=== PATIENT | female | born 1985 | race Caucasian/White ===

== ENCOUNTER 2020-12-09 11:15 | Emergency (ER) | payer OTHER, SELFPAY ==
[2020-12-09 11:45] VITALS: BP 130/80; PULSE 87; RESP 20; TEMP 36.8; O2SAT 98
--- NOTE | 2020-12-09 12:12 | ED.GENADULT ---
HPI - General Adult General Chief complaint: Upper Respiratory Infection Stated complaint: sinus and ear pain Time Seen by Provider: 12/09/20 12:12 Source: patient and RN notes reviewed Mode of arrival: ambulatory Limitations: no limitations and language barrier History of Present Illness HPI narrative: 35-year-old female presents with complaints of upper respiratory infection, otalgia, facial congestion, facial pressure, and intermittent headache (not the worst of her life) for the past 14 days. Lea reports increase in symptoms over the past 72 hours. Tylenol without relief. No facial swelling. Denies cough and chest congestion. Nasal congestion and rhinorrhea. No high fevers, sore throat, drooling, neck or throat swelling. No voice change. No nausea, vomiting, or abdominal pain. Tolerating liquids well. Denies chills, dyspnea, difficulty swallowing, jaw pain, dental pain, foreign body sensation, and rash. No chest pain or shortness of breath. The patient reports she have not been diagnosed with COVID-19. The patient reports she is not waiting for the results of a COVID-19 lab test. The patient reports she do not have chills, weakness, or fatigue. The patient reports she do not have a new or worsening cough or shortness of breath. The patient reports she do not have any loss of taste or smell or diarrhea. Denies recent traveling. Denies concerns for COVID-19 or exposures been home with limited outdoor exposure except for essential household needs, work, and return home. At this time, patient is not suspected of having COVID-19. Some parts of this dictation were generated by voice recognition software and may contain typographical and/or grammatical inaccuracies. Related Data Home Medications Medication Instructions Recorded Confirmed amlodipine 5 mg PO DAILY 12/09/20 12/09/20 cyclosporine modified 100 mg PO BID 12/09/20 12/09/20 losartan 100 mg PO DAILY 12/09/20 12/09/20 prednisone 10 mg PO DAILY 12/09/20 12/09/20 rosuvastatin 5 mg PO DAILY 12/09/20 12/09/20 sertraline 75 mg PO DAILY 12/09/20 12/09/20 Allergies Allergy/AdvReac Type Severity Reaction Status Date / Time cefaclor Allergy Unknown Unknown Verified 12/09/20 19:04 Review of Systems Review of Systems: Narrative: CONSTITUTIONAL: Denies fever, chills, sweats. EYES: Denies visual changes, redness, discharge. ENT: Complains of rhinorrhea, congestion, otalgia, facial congestion and pressure. Denies sore throat. CARDIOVASCULAR: Denies chest pain, palpitations, edema. RESPIRATORY: Denies dyspnea, wheezing, cough. GASTROINTESTINAL: Denies abdominal pain, nausea, vomiting, diarrhea. GENITOURINARY: Denies dysuria, hematuria, abnormal discharge SKIN: Denies rash or itching. MUSCULOSKELETAL: Denies acute back pain, joint pain, or myalgia. NEUROLOGIC: Denies numbness or focal weakness. Complains of intermittent BOOTH. PSYCHIATRIC: Denies anxiety or depression. All other systems reviewed & are unremarkable except as noted in HPI and below. [facility] Past Medical History Medical History (Updated 12/10/20 @ 18:33 by ABBY Manuel) Anxiety Chronic cough Chronic sinusitis (~2018) Follows with ENT Depression Glomerulonephritis Follows with nephrology Surgical History Surgical History (Updated 12/10/20 @ 18:35 by ABBY Manuel) H/O LEEP (~2018) cervical dysplasia History of tonsillectomy History of tympanostomy Hx of sinus surgery Family History Family History Other Cerebrovascular accident Family history of cardiovascular disease Social History Social History (Updated 12/09/20 @ 12:40 by ABBY Manuel) Smoking status: Never smoker Tobacco type: cigarettes Second hand tobacco smoke exposure: No Alcohol intake: current Substance use: never Substance use type: does not use Living arrangements: with family Occupation/Education: occupa
== END 2020-12-09 12:40 | disposition home or self-care (01) ==
PROVIDERS: Emergency Provider Nurse Practitioner Family
DX: J01.10 Acute frontal sinusitis, unspecified (principal); Z20.822 Contact with and (suspected) exposure to COVID-19; F41.9 Anxiety disorder, unspecified; F32.9 Major depressive disorder, single episode, unspecified; N05.9 Unspecified nephritic syndrome with unspecified morphologic changes
CPT/HCPCS: 87426; 87804; 99213; C9803; G0463

== ENCOUNTER 2021-02-10 15:27 | Emergency (ER) | payer OTHER, SELFPAY ==
[2021-02-10 15:35] VITALS: BP 120/71; PULSE 89; RESP 18; TEMP 36.9; O2SAT 98
--- NOTE | 2021-02-10 16:16 | ED.URI ---
HPI - URI/Sore Throat General Chief Complaint: Upper Respiratory Infection Stated Complaint: runny nose sore throat Time Seen by Provider: 02/10/21 16:14 Source: patient and RN notes reviewed Mode of arrival: ambulatory Limitations: no limitations History of Present Illness HPI Narrative: 36-year-old female presents with concern for sore throat, rhinorrhea with clear nasal drainage. Reports symptoms started 2 days ago. Reports her children also have similar symptoms. Denies taking any [id number] intervention. She denies fever, cough, shortness of breath, loss of sense of taste or smell, body aches, chills, sweats, ear pain, headache, nausea, vomiting, diarrhea. MD elicited complaint: sore throat and rhinorrhea Related Data Home Medications Medication Instructions Recorded Confirmed amlodipine 5 mg PO DAILY 12/09/20 02/10/21 cyclosporine modified 100 mg PO BID 12/09/20 02/10/21 losartan 100 mg PO DAILY 12/09/20 02/10/21 prednisone 10 mg PO DAILY 12/09/20 02/10/21 rosuvastatin 5 mg PO DAILY 12/09/20 02/10/21 Allergies Allergy/AdvReac Type Severity Reaction Status Date / Time cefaclor Allergy Unknown Unknown Verified 02/10/21 15:35 Review of Systems Review of Systems: Narrative: CONSTITUTIONAL: Denies malaise, chills, sweats, or fever. EYES: Denies visual changes, redness, or discharge. ENT: Reports rhinorrhea, sore throat. Denies congestion, sinus pain, otalgia CARDIOVASCULAR: Denies chest pain, palpitations, or edema. RESPIRATORY: Denies cough or dyspnea. GASTROINTESTINAL: Denies abdominal pain, nausea, vomiting, diarrhea SKIN: Denies rash or itching. MUSCULOSKELETAL: Denies myalgia. NEUROLOGIC: Denies headache. All systems reviewed & are unremarkable except as noted in HPI and below PMFSH Past Medical History Medical History (Updated 02/10/21 @ 16:23 by Karey Zambrano NP) Anxiety Chronic cough Chronic sinusitis (~2019) Follows with ENT Depression Glomerulonephritis Follows with nephrology Surgical History Surgical History (Updated 12/10/20 @ 18:35 by ABBY Manuel) H/O LEEP (~2018) cervical dysplasia History of tonsillectomy History of tympanostomy Hx of sinus surgery Family History Family History Other Cerebrovascular accident Family history of cardiovascular disease Social History Social History (Updated 12/09/20 @ 12:40 by ABBY Manuel) Smoking status: Never smoker Tobacco type: cigarettes Second hand tobacco smoke exposure: No Alcohol intake: current Substance use: never Substance use type: does not use Gender identity (if verbalized by the patient): Female Comments At time of signature, agree with nursing past medical, surgical, social and family history. There is no relevant family history pertinent to the presenting complaint Exam Narrative: Exam Narrative: GENERAL: Well-appearing, well-nourished, and in no acute distress. HEAD: Normocephalic EYES: PERRLA, conjunctivae clear ENT: Nares clear, turbinates erythematous, clear discharge. Mucous membranes moist. TM pearly hassan with sharp light reflex bilaterally; no tragal tenderness. Postnasal drainage noted. Oropharynx erythematous without lesions. Tonsils not enlarged and without exudate, no drooling, no hoarseness, no trismus, uvula midline. NECK: Supple. No lymphadenopathy CHEST: Clear to auscultation, breath sounds equal. No wheezing, rhonchi, rales, or stridor. No respiratory distress, speaks in full sentences. HEART: Regular rate and rhythm. No murmur heard. SKIN: Warm, dry, no rash. NEURO: Alert and oriented x3. PSYCH: Normal mood and affect Course Course Emergency Course: Patient is aware of diagnosis, understands and agrees to treatment plan. Anticipatory guidance given. Patient agrees to follow-up as directed and is aware of reasons to seek care at the emergency department. Portions of this record may have been crea
== END 2021-02-10 16:25 | disposition home or self-care (01) ==
PROVIDERS: Emergency Provider Nurse Practitioner
DX: J06.9 Acute upper respiratory infection, unspecified (principal); N05.9 Unspecified nephritic syndrome with unspecified morphologic changes
CPT/HCPCS: 87081; 87880; 99213; G0463

== ENCOUNTER 2021-05-08 13:17 | Emergency (ER) | payer OTHER, SELFPAY ==
--- NOTE | 2021-05-08 13:19 | ED.URI ---
HPI - URI/Sore Throat General Chief Complaint: Upper Respiratory Infection Stated Complaint: ear pain dizzy sniffels cough Time Seen by Provider: 05/08/21 13:19 Source: patient and RN notes reviewed History of Present Illness HPI Narrative: Patient is a 36-year-old female who presents the urgent care with complaints of right ear pain, wet cough, rhinorrhea and dizziness. Patient states symptoms started on May 02 with a sore throat which is since resolved. States that the ear pain and pressure has gotten much worse in the last 24 to 48 hours. Patient states that her son and her were both tested for Covid considering they all had the same symptoms. Patient states they were negative and she has been fully vaccinated. Patient denies of any fever, nausea, vomiting, drainage from the ear. Patient has not taken anything for her symptoms. No other acute complaints. No acute distress noted. Patient aware of the plan of care. Some parts of this dictation were generated by voice recognition software and may contain typographical and/or grammatical inaccuracies. Related Data Home Medications Medication Instructions Recorded Confirmed amlodipine 5 mg PO DAILY 12/09/20 05/08/21 cyclosporine modified 100 mg PO BID 12/09/20 05/08/21 losartan 100 mg PO DAILY 12/09/20 05/08/21 rosuvastatin 5 mg PO DAILY 12/09/20 05/08/21 prednisone 10 mg PO DAILY 05/08/21 05/08/21 Allergies Allergy/AdvReac Type Severity Reaction Status Date / Time No Known Allergies Allergy Verified 05/08/21 13:28 Review of Systems Review of Systems: Narrative: CONSTITUTIONAL: Denies fever, chills, or sweats. EYES: Denies visual changes, redness, or discharge. ENT: Reports of rhinorrhea, postnasal drainage and right otalgia CARDIOVASCULAR: Denies chest pain, palpitations, or edema. RESPIRATORY: Reports of slight cough without dyspnea GASTROINTESTINAL: Denies abdominal pain, nausea, vomiting, or diarrhea. GENITOURINARY: Denies dysuria or hematuria. SKIN: Denies rash or itching. MUSCULOSKELETAL: Denies back pain, joint pain, or myalgia. NEUROLOGIC: Denies headache, numbness, or weakness. All other systems reviewed are negative, except as documented in HPI. [facility] Past Medical History Medical History (Updated 05/08/21 @ 13:34 by ABBY oJ) Anxiety Chronic cough Chronic sinusitis (~2019) Follows with ENT Depression Glomerulonephritis Follows with nephrology Surgical History Surgical History (Updated 12/10/20 @ 18:35 by ABBY Manuel) H/O LEEP (~2018) cervical dysplasia History of tonsillectomy History of tympanostomy Hx of sinus surgery Family History Family History Other Cerebrovascular accident Family history of cardiovascular disease Social History Social History (Updated 12/09/20 @ 12:40 by ABBY Manuel) Smoking status: Never smoker Tobacco type: cigarettes Second hand tobacco smoke exposure: No Alcohol intake: current Substance use: never Substance use type: does not use Gender identity (if verbalized by the patient): Female Comments At the time of my signature, I reviewed and agree with the nursing past medical, surgical, social, and family history. There is no relevant family history pertinent to the patient complaint. Exam Narrative: Exam Narrative: GENERAL: This is a well-nourished, well-developed patient, in no apparent distress. HEAD: normocephalic, atraumatic. EYES: PERRL. Sclera clear/white. Vision is grossly intact. EARS: External ears normal, auditory canals clear and without drainage, moderate effusion with moderate erythema and slight injection to the right TM, left TM normal without perforation. Hearing grossly intact. NOSE: External nose normal with no obvious nasal discharge, nares without redness, no rhinorrhea. THROAT: Mucous membranes moist, posterior pharynx clear. Mild postnasal drainage NECK: Neck s
[2021-05-08 13:24] VITALS: BP 122/67; PULSE 88; RESP 18; TEMP 36.7; O2SAT 99
== END 2021-05-08 13:37 | disposition home or self-care (01) ==
PROVIDERS: Emergency Provider Nurse Practitioner Family
DX: H66.91 Otitis media, unspecified, right ear (principal); N05.9 Unspecified nephritic syndrome with unspecified morphologic changes; F41.9 Anxiety disorder, unspecified; F32.9 Major depressive disorder, single episode, unspecified
CPT/HCPCS: 99213; G0463

== ENCOUNTER 2021-07-09 13:06 | Emergency (ER) | payer OTHER, SELFPAY ==
[2021-07-09 13:10] VITALS: BP 128/77; PULSE 92; RESP 18; TEMP 36.9; O2SAT 98
--- NOTE | 2021-07-09 13:15 | ED.URI ---
HPI - URI/Sore Throat General Chief Complaint: Upper Respiratory Infection Stated Complaint: runny nose headache sore throat tired Time Seen by Provider: 07/09/21 13:15 Source: patient and RN notes reviewed History of Present Illness HPI Narrative: Patient is a 36-year-old female who presents the urgent care with complaints of runny nose, headache, fatigue and sore throat. Patient states that her whole family had strep a couple weeks ago. States that her symptoms started on Wednesday and she has not taken anything [id number]. Denies of any fever, chills, nausea, vomiting. Patient has had her Covid vaccine as well as the booster. Denies of any known exposure to Covid or strep. 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 No other acute complaints. No acute distress noted. Patient aware of the plan of care. Some parts of this dictation were generated by voice recognition software and may contain typographical and/or grammatical inaccuracies. Related Data Home Medications Medication Instructions Recorded Confirmed amlodipine 5 mg PO DAILY 12/09/20 05/08/21 cyclosporine modified 100 mg PO BID 12/09/20 05/08/21 losartan 100 mg PO DAILY 12/09/20 05/08/21 rosuvastatin 5 mg PO DAILY 12/09/20 05/08/21 prednisone 10 mg PO DAILY 05/08/21 05/08/21 Allergies Allergy/AdvReac Type Severity Reaction Status Date / Time No Known Allergies Allergy Verified 07/09/21 13:26 Review of Systems Review of Systems: CONSTITUTIONAL: Denies fever, chills, or sweats. Reports of fatigue EYES: Denies visual changes, redness, or discharge. ENT: Reports of sore throat, congestion, rhinorrhea CARDIOVASCULAR: Denies chest pain, palpitations, or edema. RESPIRATORY: Denies cough or dyspnea. GASTROINTESTINAL: Denies abdominal pain, nausea, vomiting, or diarrhea. GENITOURINARY: Denies dysuria or hematuria. SKIN: Denies rash or itching. MUSCULOSKELETAL: Denies back pain, joint pain, or myalgia. NEUROLOGIC: Reports of headache All other systems reviewed are negative, except as documented in HPI. [facility] Past Medical History Medical History (Updated 07/09/21 @ 13:45 by ABBY Jo) Anxiety Chronic cough Chronic sinusitis (~2019) Follows with ENT Depression Glomerulonephritis Follows with nephrology Surgical History Surgical History (Updated 12/10/20 @ 18:35 by ABBY Manuel) H/O LEEP (~2018) cervical dysplasia History of tonsillectomy History of tympanostomy Hx of sinus surgery Family History Family History Other Cerebrovascular accident Family history of cardiovascular disease Social History Social History (Updated 12/09/20 @ 12:40 by ABBY Manuel) Smoking status: Never smoker Tobacco type: cigarettes Second hand tobacco smoke exposure: No Alcohol intake: current Substance use: never Substance use type: does not use Gender identity (if verbalized by the patient): Female Comments At the time of my signature, I reviewed and agree with the nursing past medical, surgical, social, and family history. There is no relevant family history pertinent to the patient complaint. Exam Narrative: GENERAL: This is a well-nourished, well-developed patient, in no apparent distress. HEAD: normocephalic, atraumatic. EYES: PERRL. Sclera clear/white. Vision is grossly intact. EARS: External ears normal, auditory canals clear and without drainage, TMs normal without perforation. Hearing grossly intact. NOSE: External nose normal with no obvious nasal discharge, nares without redness, no rhinorrhea. THROAT: Mucous membranes moist, posterior pharynx clear. Mild postnasal drainage NECK: Neck supple, non-tender without lymphadenopathy, masses or thyromegaly. CARDIOVASCULAR: Regular rate and rhythm without murmurs, gallops, or rubs. RESPIRATORY: Clear to auscultation. Breath sounds equal
== END 2021-07-09 13:45 | disposition home or self-care (01) ==
PROVIDERS: Emergency Provider Nurse Practitioner Family
DX: J32.9 Chronic sinusitis, unspecified (principal); F41.9 Anxiety disorder, unspecified; F32.9 Major depressive disorder, single episode, unspecified
CPT/HCPCS: 87081; 87880; 99213; G0463

== ENCOUNTER 2021-09-04 18:22 | Emergency (ER) | payer OTHER, SELFPAY ==
[2021-09-04 18:32] VITALS: BP 120/83; PULSE 89; RESP 16; TEMP 36.5; O2SAT 100
--- NOTE | 2021-09-04 19:48 | ED.URI ---
HPI - URI/Sore Throat General Chief Complaint: Upper Respiratory Infection Stated Complaint: runny nose sore throat headache Time Seen by Provider: 09/04/21 19:26 Source: patient and RN notes reviewed Mode of arrival: ambulatory Limitations: no limitations History of Present Illness HPI Narrative: Patient presents today complaining of sore throat, rhinorrhea, headache, chills since yesterday. Denies fever. Daughter was diagnosed with strep throat over the last couple of days. Patient has taken no [id number] medication for symptoms prior to arrival. She has been vaccinated against COVID-19. MD elicited complaint: sore throat Related Data Home Medications Medication Instructions Recorded Confirmed amlodipine 10 mg PO DAILY 12/09/20 09/04/21 cyclosporine modified 100 mg PO BID 12/09/20 09/04/21 prednisone 5 mg PO DAILY 05/08/21 09/04/21 rosuvastatin 5 mg tablet 5 mg PO QHS tablet 08/06/21 09/04/21 Allergies Allergy/AdvReac Type Severity Reaction Status Date / Time No Known Allergies Allergy Verified 09/04/21 18:44 Review of Systems Review of Systems: CONSTITUTIONAL: Denies body aches, fever, or sweats.+ Chills EYES: Denies visual changes, redness, or discharge. ENT: Denies congestion, or otalgia.+ Rhinorrhea, sore throat CARDIOVASCULAR: Denies chest pain, palpitations, or edema. RESPIRATORY: Denies cough or dyspnea. GASTROINTESTINAL: Denies abdominal pain, nausea, vomiting, or diarrhea. GENITOURINARY: Denies dysuria or hematuria. SKIN: Denies rash, itching, or wounds. MUSCULOSKELETAL: Denies back pain, joint pain, or myalgia. NEUROLOGIC: Denies numbness, tingling, or weakness.+ Headache PSYCH: Denies depression or anxiety. [facility] Past Medical History Medical History Anxiety Chronic cough Chronic sinusitis (~2019) Follows with ENT CKD (chronic kidney disease) stage 3, GFR 30-59 ml/min Depression Dyslipidemia Environmental allergies Essential (primary) hypertension Family history of colon cancer in father IgA nephropathy Minimal change disease Surgical History Surgical History H/O LEEP (~2018) cervical dysplasia History of tonsillectomy (~2004) History of tympanostomy Hx of sinus surgery (~2018) Family History Family History Other Cerebrovascular accident Family history of cardiovascular disease Social History Social History Smoking status: Never smoker Tobacco type: cigarettes Second hand tobacco smoke exposure: No Alcohol intake: current Substance use: never Substance use type: does not use Gender identity (if verbalized by the patient): Female Comments At time of signature, I have reviewed and agree with nursing past medical, surgical, social and family history unless otherwise noted. Please see nursing chart for further information. There is no relevant family history pertinent to the presenting complaint Exam Narrative: GENERAL: Well-appearing, well-nourished, and in no acute distress. HEAD: Normocephalic, atraumatic. EYES: EOMI. No redness or drainage. Conjunctivae normal. ENT: Mucous membranes pink and moist. Nares clear. No rhinorrhea. TMs normal bilaterally. Throat normal. Uvula midline. NECK: Normal AROM. Supple. No lymphadenopathy. CHEST: No respiratory distress. Clear to auscultation. HEART: Regular rate and rhythm. No murmur appreciated. EXTREMITIES: Normal range of motion. No edema. SKIN: Warm, dry, no rash. Capillary refill normal. Normal skin turgor. NEURO: No focal deficits. Alert and oriented x3. Gait steady. PSYCH: Normal affect. No signs of depression or anxiety. Course Vital Signs Vital signs: Vital Signs Temperature 97.7 F 09/04/21 18:32 Pulse Rate 89 09/04/21 18:32 Respiratory Rat
== END 2021-09-04 19:45 | disposition home or self-care (01) ==
PROVIDERS: Emergency Provider Nurse Practitioner
DX: J06.9 Acute upper respiratory infection, unspecified (principal); I12.9 Hypertensive chronic kidney disease with stage 1 through stage 4 chronic kidney disease, or unspecified chronic kidney disease; N18.30 Chronic kidney disease, stage 3 unspecified; E78.5 Hyperlipidemia, unspecified; F41.9 Anxiety disorder, unspecified; F32.A Depression, unspecified
CPT/HCPCS: 87081; 87880; 99213; G0463

== ENCOUNTER 2021-10-07 18:05 | Emergency (ER) | payer OTHER, SELFPAY ==
[2021-10-07 18:10] VITALS: BP 99/72; PULSE 85; RESP 20; TEMP 36.5; O2SAT 98
--- NOTE | 2021-10-07 18:42 | ED.URI ---
HPI - URI/Sore Throat General Chief Complaint: Upper Respiratory Infection Stated Complaint: sore throat headache Time Seen by Provider: 10/07/21 18:42 Source: patient, RN notes reviewed and old records reviewed Mode of arrival: ambulatory Limitations: no limitations History of Present Illness HPI Narrative: 36-year-old female presents to the [facility] with complaints of sore throat and headache since yesterday. Patient is concerned for strep throat, her child tested positive recently. 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 Already has a test scheduled for for PCR at [facility]. MD elicited complaint: sore throat Related Data Home Medications Medication Instructions Recorded Confirmed amlodipine 10 mg PO DAILY 12/09/20 10/07/21 cyclosporine modified 100 mg PO BID 12/09/20 10/07/21 prednisone 5 mg PO DAILY 05/08/21 10/07/21 rosuvastatin 5 mg tablet 5 mg PO QHS tablet 08/06/21 10/07/21 Allergies Allergy/AdvReac Type Severity Reaction Status Date / Time No Known Allergies Allergy Verified 10/07/21 18:34 Review of Systems Review of Systems: All systems reviewed & are unremarkable except as noted in HPI and below Constitutional: Constitutional: Reports no additional constitutional complaints, Denies chills and Denies fever(s) Eyes: Eyes: Reports no additional eye complaints ENT: Reports as per HPI and Reports sore throat Cardiovascular: Cardiovascular: Reports no additional cardiovascular complaints and Denies chest pain Respiratory: Respiratory: Reports no additional respiratory complaints, Denies cough and Denies dyspnea Gastrointestinal: Gastrointestinal: Reports no additional gastrointestinal complaints, Denies abdominal pain, Denies nausea and Denies vomiting Musculoskeletal: Musculoskeletal: Reports no additional musculoskeletal complaints Integumentary/Breasts: Skin/Breast: Reports system reviewed and no additional complaints, except as docu Neurologic: Reports system reviewed and no additional complaints, except as documented Psychiatric: Psychiatric: Reports no additional psychiatric complaints Allergic/Immunologic: Allergic/Immunologic: Reports no additional allergic/immunologic complaints PMFSH Past Medical History Medical History Anxiety Chronic cough Chronic sinusitis (~2018) Follows with ENT CKD (chronic kidney disease) stage 3, GFR 30-59 ml/min Depression Dyslipidemia Environmental allergies Essential (primary) hypertension Family history of colon cancer in father IgA nephropathy Minimal change disease Surgical History Surgical History H/O LEEP (~2017) cervical dysplasia History of tonsillectomy (~2004) History of tympanostomy Hx of sinus surgery (~2018) Family History Family History Other Cerebrovascular accident Family history of cardiovascular disease Social History Social History Smoking status: Never smoker Tobacco type: cigarettes Second hand tobacco smoke exposure: No Alcohol intake: current Substance use: never Substance use type: does not use Gender identity (if verbalized by the patient): Female Comments At the time of my signature, I reviewed and agree with the nursing past medical, surgical, social, and family history. There is no relevant family history pertinent to the patient complaint. Exam Const: General: healthy appearing, no acute distress and alert Nutritional Appearance: well nourished and obese Orientation/consciousness: patient oriented x3 Limitations: no limitations HENMT: Head: normal to inspection Ears: external ears normal, TM's normal bilaterally and EAC's normal General nose exam: Normal nasal mucous membranes and turbinates present and Nasal discharge present clear Face and sinus: norm
== END 2021-10-07 18:55 | disposition home or self-care (01) ==
PROVIDERS: Emergency Provider Nurse Practitioner
DX: J06.9 Acute upper respiratory infection, unspecified (principal); I12.9 Hypertensive chronic kidney disease with stage 1 through stage 4 chronic kidney disease, or unspecified chronic kidney disease; N18.30 Chronic kidney disease, stage 3 unspecified; E78.5 Hyperlipidemia, unspecified; F41.9 Anxiety disorder, unspecified; F32.A Depression, unspecified
CPT/HCPCS: 87081; 87880; 99213; G0463

== ENCOUNTER 2022-01-19 21:34 | Emergency (ER) | payer OTHER, SELFPAY ==
[2022-01-19 21:42] VITALS: BP 148/97; PULSE 83; RESP 18; TEMP 37.3; O2SAT 98
[2022-01-20 00:12] VITALS: BP 147/98; PULSE 86; RESP 18; TEMP 36.9; O2SAT 99
--- NOTE | 2022-01-20 00:14 | ED.FEVER ---
HPI - Fever General Chief Complaint: Fever Stated Complaint: fever x 3 days, body pain Time Seen by Provider: 01/20/22 00:13 History of Present Illness HPI Narrative: 36-year-old female presents the emergency room with fever she has had for 3 days. Fevers associated with bilateral ear pain, and body aches pain. Patient states she has been taking Tylenol intermittently to manage her fevers. Patient denies sinus congestion, postnasal drip, cough, rhinorrhea, dysuria. Related Data Home Medications Medication Instructions Recorded Confirmed amlodipine 10 mg PO DAILY 12/09/20 10/07/21 cyclosporine modified 100 mg PO BID 12/09/20 10/07/21 prednisone 5 mg PO DAILY 05/08/21 10/07/21 rosuvastatin 5 mg tablet 5 mg PO QHS tablet 08/06/21 10/07/21 Allergies Allergy/AdvReac Type Severity Reaction Status Date / Time No Known Allergies Allergy Verified 01/20/22 01:37 Review of Systems Review of Systems: CONSTITUTIONAL: Reports fever EYES: Denies visual changes, redness, or discharge. ENT: Denies rhinorrhea, congestion, sore throat, or otalgia. CARDIOVASCULAR: Denies chest pain, palpitations, or edema. RESPIRATORY: Denies cough or dyspnea. GASTROINTESTINAL: Denies abdominal pain, nausea, vomiting, or diarrhea. GENITOURINARY: Denies dysuria or hematuria. SKIN: Denies rash or itching. MUSCULOSKELETAL: Denies back pain, joint pain, or myalgia. NEUROLOGIC: Denies headache, numbness, dizziness, or weakness. PSYCHIATRIC: Denies anxiety or depression. [facility] Past Medical History Medical History Anxiety Chronic cough Chronic sinusitis (~2018) Follows with ENT CKD (chronic kidney disease) stage 3, GFR 30-59 ml/min Depression Dyslipidemia Environmental allergies Essential (primary) hypertension Family history of colon cancer in father IgA nephropathy Minimal change disease Surgical History Surgical History H/O LEEP (~2017) cervical dysplasia History of tonsillectomy (~2004) History of tympanostomy Hx of sinus surgery (~2018) Family History Family History Other Cerebrovascular accident Family history of cardiovascular disease Social History Social History Smoking status: Never smoker Tobacco type: cigarettes Second hand tobacco smoke exposure: No Alcohol intake: current Substance use: never Substance use type: does not use Gender identity (if verbalized by the patient): Female Exam Narrative: GENERAL: Well-appearing, well-nourished, and in no acute distress. HEAD: Normocephalic, atraumatic. EYES: PERRLA and EOMI. ENT: Nares clear, no rhinorrhea or epistaxis. Mucous membranes moist. Oropharynx without tonsillar hypertrophy exudate or other lesions. Bilateral TMs pearly hassan nonbulging NECK: Supple. No adenopathy or masses. No carotid bruits or JVD CHEST: Clear to auscultation. No respiratory distress. No wheezes rales or rhonchi HEART: Regular rate and rhythm. No murmur heard. Normal peripheral pulses. ABDOMEN: Soft, nontender, nondistended, normal active bowel sounds. EXTREMITIES: Normal range of motion. No edema. SKIN: Warm, dry, no rash. NEURO: No focal deficits. Alert and oriented x3. PSYCH: Normal mood and affect. Course Vital Signs Vital signs: Vital Signs Temperature 37.3 C 01/19/22 21:42 Pulse Rate 83 01/19/22 21:42 Respiratory Rate 18 01/19/22 21:42 Blood Pressure 148/97 H 01/19/22 21:42 Pulse Oximetry 98 01/19/22 21:42 Temperature 36.9 C 01/20/22 00:12 Pulse Rate 86 01/20/22 00:12 Respiratory Rate 18 01/20/22 00:12 Blood Pressure 147/98 H 01/20/22 00:12 Pulse Oximetry 99 01/20/22 00:12 MDM - Fever MDM Narrative Medical decision making narrative: 36-year-old female presented to the emergency room complaints of body a
[2022-01-20] MEDS: SODIUM CHLORIDE 0.9% IV 1,000 ML 999 ML IV CONT (01:18)
[2022-01-20 01:55] LABS: Influenza A QL RT-PCR Negative (Negative); Influenza B QL RT-PCR Negative (Negative); SARS-CoV-2 RNA PCR Negative
[2022-01-20 02:23] VITALS: BP 126/85; PULSE 70; RESP 18; TEMP 37.3; O2SAT 99
--- NOTE | 2022-01-24 23:03 | PC.NURSE ---
LATE ENTRYNS infused approx 0103 and ceftriaxone 0133 on 01/20/2022 This note is being entered to document information to the patient's record. The following information was omitted on [01/24/2022], by [Jose Kevin].
== END 2022-01-20 02:24 | disposition home or self-care (01) ==
PROVIDERS: Emergency Provider Nurse Practitioner Family
DX: R50.9 Fever, unspecified (principal); H66.90 Otitis media, unspecified, unspecified ear; Z20.822 Contact with and (suspected) exposure to COVID-19; I12.9 Hypertensive chronic kidney disease with stage 1 through stage 4 chronic kidney disease, or unspecified chronic kidney disease; N18.30 Chronic kidney disease, stage 3 unspecified; E78.5 Hyperlipidemia, unspecified; J32.9 Chronic sinusitis, unspecified
CPT/HCPCS: 87502; 96374; 96375; 99284; C9803; J0131; J0696; J7030; U0003; U0005

== ENCOUNTER 2022-03-10 08:39 | Emergency (ER) | payer OTHER, SELFPAY ==
[2022-03-10 08:43] VITALS: BP 113/75; PULSE 92; RESP 16; TEMP 37.1; O2SAT 99
--- NOTE | 2022-03-10 09:07 | ED.URI ---
HPI - URI/Sore Throat General Chief Complaint: Upper Respiratory Infection Stated Complaint: cough sore throat chest congestion Time Seen by Provider: 03/10/22 09:05 Source: patient and RN notes reviewed Mode of arrival: ambulatory Limitations: no limitations History of Present Illness HPI Narrative: 37-year-old female presents with concern for sore throat, productive cough, bilateral ear pain, chills, body ache, headache, nasal congestion. Reports she is vaccinated for COVID and flu, has had a negative COVID test yesterday. She reports symptoms for 1 week. [place] symptoms. She denies taking any ggke-zui-ynfcbuw medications for her symptoms. She denies shortness of breath, fever. She does report feeling hot and cold. MD elicited complaint: cough and sore throat Related Data Home Medications Medication Instructions Recorded Confirmed amlodipine 5 mg tablet 10 mg PO DAILY 12/09/20 03/10/22 rosuvastatin 5 mg tablet 5 mg PO QHS 08/06/21 03/10/22 calcium carbonate 600 mg calcium 600 mg PO DAILY 02/09/22 03/10/22 (1,500 mg) tablet (Calcium) cholecalciferol (vitamin D3) 50 50 mcg PO DAILY 02/09/22 03/10/22 mcg (2,000 unit) capsule famotidine 20 mg tablet (Pepcid) 20 mg PO DAILY 02/09/22 03/10/22 losartan 100 mg tablet 100 mg PO DAILY 02/09/22 03/10/22 omega 1-anz-zmq-fish oil 100 1 cap PO .QD 02/09/22 03/10/22 mg-160 mg-1,000 mg capsule (Fish Oil) Allergies Allergy/AdvReac Type Severity Reaction Status Date / Time No Known Allergies Allergy Verified 03/10/22 08:50 Review of Systems Review of Systems: CONSTITUTIONAL: Reports malaise, chills, sweats EYES: Denies visual changes, redness, or discharge. ENT: Reports rhinorrhea, congestion, sinus pain, otalgia and sore throat. CARDIOVASCULAR: Denies chest pain, palpitations, or edema. RESPIRATORY: Reports productive cough. Denies dyspnea. GASTROINTESTINAL: Denies abdominal pain, nausea, vomiting, diarrhea SKIN: Denies rash or itching. MUSCULOSKELETAL: Reports myalgia. NEUROLOGIC: Denies headache. All systems reviewed & are unremarkable except as noted in HPI and below PMFSH Past Medical History Medical History (Updated 03/10/22 @ 09:13 by Karey Zambrano NP) Anxiety Chronic cough Chronic sinusitis (~2018) Follows with ENT CKD (chronic kidney disease) stage 3, GFR 30-59 ml/min Depression Dyslipidemia Environmental allergies Essential (primary) hypertension Family history of colon cancer in father IgA nephropathy Meningeal adhesions (cerebral) (spinal) Minimal change disease Surgical History Surgical History H/O LEEP (~2017) cervical dysplasia History of tonsillectomy (~2004) History of tympanostomy Hx of sinus surgery (~2018) Family History Family History Other Cerebrovascular accident Family history of cardiovascular disease Social History Social History Smoking status: Never smoker Tobacco type: cigarettes Second hand tobacco smoke exposure: No Alcohol intake: current Substance use: never Substance use type: does not use Gender identity (if verbalized by the patient): Female Comments At time of signature, agree with nursing past medical, surgical, social and family history. There is no relevant family history pertinent to the presenting complaint Exam Narrative: GENERAL: Nontoxic-appearing and in no acute distress. HEAD: Normocephalic EYES: PERRLA, conjunctivae clear ENT: Nares clear, turbinates edematous and erythematous, green discharge. Mucous membranes moist. Right TM pearly hassan with dull light reflex TM slightly bulging and erythematous no tragal tenderness. Oropharynx not erythematous without lesions. Tonsils not enlarged and without exudate, no drooling, no hoarseness, no trismus,
== END 2022-03-10 09:26 | disposition home or self-care (01) ==
PROVIDERS: Emergency Provider Nurse Practitioner
DX: H66.91 Otitis media, unspecified, right ear (principal); J06.9 Acute upper respiratory infection, unspecified; R05.9 Cough, unspecified; I12.9 Hypertensive chronic kidney disease with stage 1 through stage 4 chronic kidney disease, or unspecified chronic kidney disease; N18.30 Chronic kidney disease, stage 3 unspecified; E78.5 Hyperlipidemia, unspecified
CPT/HCPCS: 87081; 87880; 99213; G0463

== ENCOUNTER 2024-04-18 12:10 | Emergency (ER) | payer OTHER, SELFPAY ==
--- NOTE | 2024-04-18 12:58 | ED.URI ---
HPI - URI/Sore Throat General Chief Complaint: Upper Respiratory Infection Stated Complaint: ear pain, sore throat ,and nasal congestion Time Seen by Provider: 04/18/24 12:25 Source: patient, RN notes reviewed and old records reviewed Mode of arrival: ambulatory Limitations: no limitations History of Present Illness HPI Narrative: 39 year old female who presents to express with complaints of sore throat, sinus congestion and drainage and bilateral ear pain since Wednesday with some fevers highest noted at 99.9F. Patient reports that she has been taking DayQuil, NyQuil, Tylenol and also Zyrtec for her symptoms without improvement. Patient reports that it is very painful to swallow and her ears hurt especially her left ear. Patient reports that her kids have been ill also with ear infection and upper respiratory symptoms. Patient reports history of strep throat and ear infections in the past, has had tonsillectomy in 2004 and ear tubes as young child. MD elicited complaint: fever, sore throat, rhinorrhea, nasal congestion and other (ear pain) Pertinent past history: tympanostony tubes and other (strep throat, ear infection) Onset (ago): day(s) (5 days) Severity: moderate Description of mucous: yellow (light) Able to tolerate fluids by mouth: Yes Exacerbating factors: swallowing Treatments prior to arrival: acetaminophen and other (DayQuil and NyQuil and Zyrtec) Related Data Home Medications Medication Instructions Recorded Confirmed amlodipine 5 mg tablet 10 mg PO DAILY 12/09/20 03/06/24 rosuvastatin 5 mg tablet 5 mg PO QHS 08/06/21 03/06/24 calcium carbonate (Calcium 600) 600 mg PO DAILY 02/09/22 03/06/24 cholecalciferol (vitamin D3) 50 50 mcg PO DAILY 02/09/22 03/06/24 mcg (2,000 unit) capsule famotidine 20 mg tablet (Pepcid) 20 mg PO DAILY 02/09/22 03/06/24 losartan 100 mg tablet 100 mg PO DAILY 02/09/22 03/06/24 omega 8-whj-juz-fish oil 100 1 cap PO .QD 02/09/22 03/06/24 mg-160 mg-1,000 mg capsule (Fish Oil) Allergies Allergy/AdvReac Type Severity Reaction Status Date / Time No Known Allergies Allergy Verified 05/20/24 12:01 Review of Systems Review of Systems: CONSTITUTIONAL: Reports malaise, chills, sweats, or fever. EYES: Denies visual changes, redness, or discharge. ENT: Reports rhinorrhea, congestion, sinus pain,bilateral otalgia and sore throat. CARDIOVASCULAR: Denies chest pain, palpitations, or edema. RESPIRATORY: Reports no cough.? Denies dyspnea. GASTROINTESTINAL: Denies abdominal pain, nausea, vomiting, diarrhea SKIN: Denies rash or itching. MUSCULOSKELETAL: Denies myalgia. NEUROLOGIC: Reports frontal headache. All systems reviewed & are unremarkable except as noted in HPI and below PMFSH Past Medical History Medical History Anxiety Chronic sinusitis (~2019) Follows with ENT CKD (chronic kidney disease) stage 3, GFR 30-59 ml/min Depression Dyslipidemia Environmental allergies Essential (primary) hypertension Family history of colon cancer Family history of colon cancer in father IgA nephropathy Influenza A Meningeal adhesions (cerebral) (spinal) Minimal change disease kidney's Surgical History Surgical History H/O LEEP (~2018) cervical dysplasia History of tonsillectomy (~2004) History of tympanostomy Hx of sinus surgery (~2019) Family History Family History Other Cerebrovascular accident Family history of cardiovascular disease Social History Social History Smoking status: Never smoker Tobacco type: cigarettes Second hand tobacco smoke exposure: No Alcohol intake: current Substance use: never Substance use type: does not use Lack of Transportation: No Lack of Food: Never True Current Housing: I Have Housing Concerned Abou
== END 2024-04-18 13:00 | disposition home or self-care (01) ==
PROVIDERS: Emergency Provider Registered Nurse
DX: J01.90 Acute sinusitis, unspecified (principal); J02.9 Acute pharyngitis, unspecified; I12.9 Hypertensive chronic kidney disease with stage 1 through stage 4 chronic kidney disease, or unspecified chronic kidney disease; N18.30 Chronic kidney disease, stage 3 unspecified; E78.5 Hyperlipidemia, unspecified
CPT/HCPCS: 87081; 99213; G0463